=== PATIENT | male | born 1980 | race African-American/Black ===

== ENCOUNTER 2022-08-13 03:53 | Emergency (ER) | payer OTHER ==
[~2022-08-13] VITALS: Ht 180.3 cm; Wt 95.0 kg
[2022-08-13 04:20] VITALS: BP 141/92; PULSE 64; RESP 18; O2SAT 98
[2022-08-13] MEDS ORDERED: ACETAMINOPHEN 325MG TABLET PO ONE (06:45)
[2022-08-13 07:05] VITALS: TEMP 98.5
[2022-08-13] MEDS ORDERED: ACET-2708 MT (07:42)
== END 2022-08-13 07:59 | disposition home or self-care (01) ==
LOC: ER 03:53
DX: S06.0X0A Concussion without loss of consciousness, initial encounter (principal); V49.49XA Driver injured in collision with other motor vehicles in traffic accident, initial encounter; Y93.89 Activity, other specified; Y92.89 Other specified places as the place of occurrence of the external cause; Y99.8 Other external cause status
CPT/HCPCS: 99284